=== PATIENT | female | born 1990 | race Caucasian/White ===

== ENCOUNTER 2020-09-06 20:32 | Emergency (ER) | payer BC, OTHER ==
[~2020-09-06] VITALS: Ht 157.5 cm; Wt 69.0 kg
[2020-09-06] MEDS ORDERED: MAALOX/HYOSCYAMINE/LIDOCAINE 45 ML BTL ONE (21:05)
--- NOTE | 2020-09-06 21:08 | NUR ---
patient resting in bed in NAD. FLACC 0; reports burning sensation in epigastrum /. GI cocktail administered per order. VS remain stable on RA; remains in NSR. call workman in reach. s/o at bedside. will continue to monitor.
[2020-09-06 21:19] LABS: BASOPHILS % (AUTO) 0 % (0-1); EOSINOPHILS % (AUTO) 4 % (1-7); LYMPHOCYTES % (AUTO) 19 % (22-44); MEAN CORPUSCULAR HEMOGLOBIN 29.5 pg (27.0-34.8); MEAN PLATELET VOLUME 7.7 fL (7.4-10.4); MONOCYTES % (AUTO) 7 % (2-9); NEUTROPHILS % (AUTO) 70 % (42-75); PLATELET COUNT 280 x10^3/uL (130-400); RED BLOOD COUNT 4.35 x10^6/uL (3.82-5.3); RED CELL DISTRIBUTION WIDTH 12.8 % (9.6-15.2)
[2020-09-06 21:24] LABS: MD NO
[2020-09-06] MEDS ORDERED: MAALOX/HYOSCYAMINE/LIDOCAINE 45 ML BTL PO ONE (21:30)
[2020-09-06 21:31] LABS: ALANINE AMINOTRANSFERASE 61 U/L (12-78); ANION GAP 8 mmol/L (5-15); CALCIUM 8.8 mg/dL (8.5-10.1); CHLORIDE 109 mmol/L (98-107)
[2020-09-06 21:34] LABS: ALKALINE PHOSPHATASE 104 U/L (45-117); BILIRUBIN,TOTAL 0.9 mg/dL (0.2-1.0); TOTAL PROTEIN 7.2 g/dL (6.4-8.2)
--- NOTE | 2020-09-06 21:40 | NUR ---
burning sensation in epigastrum reported 4/10 by patient. ambulated to bathroom with steady gait, in NAD. call workman in reach. safety maintained. will continue to monitor
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
[2020-09-06 22:49] VITALS: BP 107/61
== END 2020-09-06 22:51 | disposition home or self-care (01) ==
LOC: ED 21:49
DX: K29.00 Acute gastritis without bleeding (principal); R94.31 Abnormal electrocardiogram [ECG] [EKG]
CPT/HCPCS: 36415; 80053; 83690; 85025; 93005; 99284

== ENCOUNTER → 2020-11-11 | Outpatient (CLI) | payer OTHER ==
[~2020-11-11] MED LIST: 5-HY100C3 PO; ACET325T26 PO; BIOT25005 PO; DOCU-131 PO; FISH1CAP PO; IBUP-1222 PO; OXYC5TAB98 PO; ZINC220T2 PO
== END | disposition home or self-care (01) ==
LOC: STAR 13:52
PROVIDERS: ATTEND Student in an Organized Health Care Education/Training Program
DX: Z20.822 Contact with and (suspected) exposure to COVID-19 (principal)
CPT/HCPCS: U0003; U0005

== ENCOUNTER 2020-11-15 10:29 | Day surgery (SDC) | payer OTHER ==
[~2020-11-15] VITALS: Ht 157.5 cm; Wt 67.0 kg
[~2020-11-15 10:29] MED LIST changes: -ACET325T26 PO; -DOCU-131 PO; -IBUP-1222 PO; -OXYC5TAB98 PO
[2020-11-15 11:05] VITALS: BP 105/70
[2020-11-15] MEDS ORDERED: CHLORHEXIDINE 15 ML UDC ONE (11:09)
[2020-11-15] MEDS ORDERED: MIDAZOLAM 1 MG/ML, 2ML ONE (11:22)
[2020-11-15] MEDS ORDERED: ROCURONIUM 10MG/ML,5ML ONE (11:23)
[2020-11-15] MEDS ORDERED: FENTANYL PF 250 MCG/5ML ONE (11:23)
[2020-11-15] MEDS ORDERED: ONDANSETRON 2MG/ML, 2ML ONE (11:23)
[2020-11-15] MEDS ORDERED: CEFOTETAN 2 GM ONE (11:23)
[2020-11-15] MEDS ORDERED: PROPOFOL 10 MG/ML, 20ML ONE (11:23)
[2020-11-15] MEDS ORDERED: LACTATED RINGERS 1,000 ML IV SCH (11:30)
[2020-11-15] MEDS ORDERED: CHLORHEXIDINE 15 ML UDC PO ONE (11:30)
[2020-11-15 11:46] LABS: HCG UR SG 1.013 (1.003-1.030)
[2020-11-15] MEDS ORDERED: BUPIVACAINE/PF 0.5% ONE (11:57)
[2020-11-15] MEDS ORDERED: EPINEPHRINE 1 MG/ML, 1ML ONE (11:57)
[2020-11-15] MEDS ORDERED: NEOSTIGMINE 1 MG/ML, 10ML ONE (12:15)
[2020-11-15] MEDS ORDERED: GLYCOPYRROLATE 0.2MG/1ML, 5ML ONE (12:15)
[2020-11-15] MEDS ORDERED: DEXAMETHASONE 4 MG/ML, 1ML ONE (12:15)
[2020-11-15] MEDS ORDERED: PROMETHAZINE 25 MG/ML, 1ML IVPush PRN (12:30)
[2020-11-15] MEDS ORDERED: FENTANYL PF 100 MCG/2ML IV PRN (12:30)
[2020-11-15] MEDS ORDERED: LABETALOL 5MG/ML, 20ML IV PRN (12:30)
[2020-11-15] MEDS ORDERED: ACETAMINOPHEN 325 MG TABLET PO PRN (12:30)
[2020-11-15] MEDS ORDERED: MEPERIDINE/PF 25MG/0.5ML IVPush PRN (12:30)
[2020-11-15] MEDS ORDERED: HALOPERIDOL 5 MG/ML IV PRN (12:30)
[2020-11-15] MEDS ORDERED: hydrALAzine 20 MG/ML, 1ML IV PRN (12:30)
[2020-11-15] MEDS ORDERED: HYDROmorphone 1 MG/ML, 1ML INJ IVPush PRN (12:30)
[2020-11-15] MEDS ORDERED: morphine SULFATE 10 MG/ML, 1ML IVPush PRN (12:30)
[2020-11-15] MEDS ORDERED: OXYcodone 5 MG/5 ML ORAL.SOL UDC PO PRN (12:30)
[2020-11-15] MEDS ORDERED: KETOROLAC 30 MG/1 ML ONE (12:39)
[2020-11-15] MEDS ORDERED: IBUP-1222 PO (12:56)
[2020-11-15] MEDS ORDERED: DOCU-131 PO (12:56)
[2020-11-15] MEDS ORDERED: ACET325T26 PO (12:56)
[2020-11-15] MEDS ORDERED: OXYC5TAB98 PO (12:56)
== END 2020-11-15 14:20 | disposition home or self-care (01) ==
LOC: OUT 10:29
PROVIDERS: ATTEND Student in an Organized Health Care Education/Training Program
DX: K80.10 Calculus of gallbladder with chronic cholecystitis without obstruction (principal); Z79.899 Other long term (current) drug therapy
CPT/HCPCS: 47562; 81025; 88304; J0171; J1100; J1885; J2250; J2405; J2704; J2710; J3010; J7120